=== PATIENT | female | born 1980 | race American Indian/Alaskan Native ===

== ENCOUNTER 2017-06-22 06:30 | Inpatient (IN) | payer MEDICAID ==
[2017-05-28 10:33] VITALS: BMI 34.2
[2017-06-22] MEDS ORDERED: Propofol 10 mg/ml Inj (20 ML) ONE ×2 (07:21→11:02)
[2017-06-22] MEDS ORDERED: Succinylcholine 200 mg/10 ml Inj IV ONE (07:22)
[2017-06-22] MEDS ORDERED: Rocuronium 10 mg/ml (5 ml) ONE (07:22)
[2017-06-22] MEDS ORDERED: ePHEDrine 50 mg/ml Inj ONE (07:22)
[2017-06-22] MEDS ORDERED: Lidocaine 4% (Laryng-O-Jet) Kit MM ONE (07:22)
[2017-06-22] MEDS ORDERED: Midazolam 2 MG/2 ML VIAL ONE (07:22)
[2017-06-22] MEDS ORDERED: SENSORCAINE 0.5% W/EPINEPHRINE 50ML MDV IJ ONE (07:27)
[2017-06-22] MEDS ORDERED: Vasopressin 20 Units/ml Inj ONE (07:27)
[2017-06-22] MEDS ORDERED: Methylene Blue 10 mg/mL(10ml) IV ONE (07:28)
[2017-06-22] MEDS ORDERED: Bupivacaine 0.25%-Epinephrine 1:200,000 (30 ml) Inj ONE (07:34)
[2017-06-22 07:43] LABS: BASO % 0.3 % (0.0-2.0); EOS # 0.3 K/uL (0.0-0.7); EOS % 4.4 % (0.0-4.0); HEMATOCRIT 38.6 % (34.0-47.0); LYMPH # 2.5 K/uL (1.0-4.3); MEAN CELL VOLUME 86.3 fl (81.0-99.0); MEAN CORPUSCULAR HEMOGLOBIN 28.3 pg (27.0-31.0); MEAN CORPUSCULAR HGB CONC 32.8 g/dL (33.0-37.0); MEAN PLATELET VOLUME 7.9 fl (7.2-11.7); MONO # 0.7 K/uL (0.0-0.8); MONO % 10.3 % (0.0-10.0); NEUT # 3.6 K/uL (1.8-7.0); RED CELL DISTRIBUTION WIDTH 13.4 % (11.5-14.5); WHITE BLOOD COUNT 7.2 K/uL (4.8-10.8)
[2017-06-22] MEDS ORDERED: Sevoflurane - Inhalation Anesthetic Liq (250 ml) ONE (07:45)
[2017-06-22 08:03] LABS: BLOOD UREA NITROGEN 9 mg/dl (7-17); CALCIUM 9.2 mg/dL (8.4-10.2); CARBON DIOXIDE 26 mmol/L (22-30); CHLORIDE 104 mmol/L (98-107); GFR AFRICAN-AMERICAN > 60; GLUCOSE,RANDOM 99 mg/dL (65-105); POTASSIUM 3.8 MMOL/L (3.6-5.0); SODIUM 141 mmol/l (132-148)
[2017-06-22] MEDS ORDERED: Lactated Ringer's 1,000 ML IV ONE ×3 (08:15→11:45)
[2017-06-22] MEDS: Lactated Ringer's 1,000 ML IV ONE ×3 (08:15→15:40)
[2017-06-22] MEDS ORDERED: Bupivacaine 0.25%-Epinephrine 1:200,000 (30 ml) Inj IJ ONE ×2 (08:35)
[2017-06-22] MEDS ORDERED: Vasopressin 20 Units/ml Inj IV ONE (09:22)
[2017-06-22] MEDS ORDERED: HEMOSTATIC MATRIX 10 ML DIS.NEEDLE TOP ONE ×2 (10:25)
[2017-06-22] MEDS ORDERED: Ferric Subsulfate Sol(60 mL) ONE (12:25)
[2017-06-22] MEDS ORDERED: Ferric Subsulfate Sol(60 mL) TP ONE (12:26)
[2017-06-22] MEDS ORDERED: Lactated Ringer's 1,000 ML IV SCH (12:56)
[2017-06-22] MEDS ORDERED: Oxycodone/Acetaminophen 5/325 mg Tab PO PRN (13:04)
--- NOTE | 2017-06-22 13:08 | PCM.SURG1 ---
<Connor Guidry - Last Filed: 06/22/17 13:06> Surgeon's Initial Post Op Note - Surgeon's Notes Surgeon: Dr. Perez Balance Weigher: Connor Guidry PGY2, Rober NI Type of Anesthesia: General Endo Pre-Operative Diagnosis: Pelvic pain, uterine fibroids. Operative Findings: Uterine fibroids, extensive adhesions, R ovrian cyst Post-Operative Diagnosis: Same Operation Performed: Robotic extensive lysis of adhesion, R ovarian cystectomy, R salphingectomy. Specimen/Specimens Removed: Adhesions, R ovarian cyst, R uterine tube. Estimated Blood Loss: EBL {In ML}: 100 Blood Products Given: N/A Drains Used: No Drains Post-Op Condition: Fair Date of Surgery/Procedure: 06/22/17 Time of Surgery/Procedure: 13:08 <Monroe Perez - Last Filed: 07/05/17 17:34> Surgeon's Initial Post Op Note - Surgeon's Notes Surgeon: Dr. Chris Childress Type of Anesthesia: General Endo, Local Pre-Operative Diagnosis: Abnormal uterine bleeding, Fibroid uterus, Chrnoic pelvic pain Operative Findings: Fibroid uterus, Extensive peritoneal adhessions, bowel adhessions, extensive endometriosis. Multiple myomas in lower posterior uterine segmenet, right and left posterior uterine wall. Extensive bowel adhesions involving multiple bowel loops / small bowel and the posterior culdesac, and pelvic side wall. Both adnexa tightly adherent to bowel and uterus and posterior culdesac. right ovarian cyst, right falopian tube severely distorted and adherent to uterus and bowl loops. Ureters explored and showing uncompromised as per exploration and finally cystoscopy at the end of the procedure. cystoscopy showing normal bladder anatomy. myomectomy completed with 3 myomas removed via the assitant port. defects repaired with 2- 0 v lock sutures. exteremely difficult surgical case due to distorted anatomy and severe adhesions. tubes are severely distorted and adherent to pelvic viscera. Post-Operative Diagnosis: Abnormal uterine bleeding,. Fibroid uterus,. Chrnoic pelvic pain. Ovarian cysts. Pelvic adhesive disease. severly distorted pelvic anatomy due to adhessions, fibroids and ovarian cysts. Operation Performed: 1. Robotic assited myomectomy, right ovarian cystectomy, right salpingectomy partial. 2. Extensive lysis of adhesions / enterolysis. 3. Cystoscopy Specimen/Specimens Removed: Myomas, right ovarian cyst, right falopian tube severely distorted segmenet Estimated Blood Loss: EBL {In ML}: 100 Drains Used: No Drains Post-Op Condition: Good Date of Surgery/Procedure: 06/22/17 Time of Surgery/Procedure: 13:10
[2017-06-22] MEDS: HYDROmorphone 0.5 mg/0.5 ml ISec IVP PRN ×2 (13:50→14:15)
[2017-06-22] MEDS: ceFAZolin 1 GM in Sodium Chloride 0.9% 100 ML IVPB SCH (17:02)
[2017-06-22 18:42] LABS: HEMATOCRIT 41.7 % (34.0-47.0)
[2017-06-22 21:34] LABS: HEMATOCRIT 38.2 % (34.0-47.0); MEAN CELL VOLUME 85.4 fl (81.0-99.0); MEAN CORPUSCULAR HEMOGLOBIN 27.3 pg (27.0-31.0); RED CELL DISTRIBUTION WIDTH 13.5 % (11.5-14.5); WHITE BLOOD COUNT 13.6 K/uL (4.8-10.8)
[2017-06-23] MEDS: ceFAZolin 1 GM in Sodium Chloride 0.9% 100 ML IVPB SCH ×2 (01:57→09:39)
[2017-06-23 04:13] VITALS: BP 132/86; PULSE 96; RESP 18; TEMP 99.1; O2SAT 96
--- NOTE | 2017-06-23 08:28 | CP.PCM.DIS ---
Provider - Provider Date of Admission: 06/22/17 12:58 Attending physician: Monroe Perez MD Primary care physician: Schuyler Chang Time Spent in preparation of Discharge (in minutes): 45 Hospital Course - Lab Results Lab Results: Most Recent Lab Values WBC 13.6 K/uL (4.8-10.8) H D 06/22/17 21:20 RBC 4.47 Mil/uL (3.80-5.20) 06/22/17 21:20 Hgb 12.2 g/dL (12.0-16.0) 06/22/17 21:20 Hct 38.2 % (34.0-47.0) 06/22/17 21:20 MCV 85.4 fl (81.0-99.0) 06/22/17 21:20 MCH 27.3 pg (27.0-31.0) 06/22/17 21:20 MCHC 32.0 g/dL (33.0-37.0) L 06/22/17 21:20 RDW 13.5 % (11.5-14.5) 06/22/17 21:20 Plt Count 318 K/uL (130-400) 06/22/17 21:20 MPV 7.9 fl (7.2-11.7) 06/22/17 07:34 Neut % (Auto) 50.0 % (50.0-75.0) 06/22/17 07:34 Lymph % (Auto) 35.0 % (20.0-40.0) 06/22/17 07:34 [place] % (Auto) 10.3 % (0.0-10.0) H 06/22/17 07:34 Eos % (Auto) 4.4 % (0.0-4.0) H 06/22/17 07:34 Baso % (Auto) 0.3 % (0.0-2.0) 06/22/17 07:34 Neut # 3.6 K/uL (1.8-7.0) 06/22/17 07:34 Lymph # 2.5 K/uL (1.0-4.3) 06/22/17 07:34 [place] # 0.7 K/uL (0.0-0.8) 06/22/17 07:34 Eos # 0.3 K/uL (0.0-0.7) 06/22/17 07:34 Baso # 0.0 K/uL (0.0-0.2) 06/22/17 07:34 Sodium 141 mmol/l (132-148) 06/22/17 07:34 Potassium 3.8 MMOL/L (3.6-5.0) 06/22/17 07:34 Chloride 104 mmol/L (98-107) 06/22/17 07:34 Carbon Dioxide 26 mmol/L (22-30) 06/22/17 07:34 Anion Gap 14 (10-20) 06/22/17 07:34 BUN 9 mg/dl (7-17) 06/22/17 07:34 Creatinine 0.7 mg/dL (0.7-1.2) 06/22/17 07:34 Est GFR ( Amer) > 60 06/22/17 07:34 Est GFR (Non-Af Amer) > 60 06/22/17 07:34 POC Glucose (mg/dL) 141 mg/dL (65-110) H 06/22/17 13:03 Random Glucose 99 mg/dL (65-105) 06/22/17 07:34 Calcium 9.2 mg/dL (8.4-10.2) 06/22/17 07:34 Blood Type B POSITIVE 06/22/17 07:34 Blood Type Confirm B POSITIVE 06/22/17 09:50 Antibody Screen Negative 06/22/17 07:34 BBK History Checked No verified bt 06/22/17 07:34 - Hospital Course Hospital Course: Pt came in [facility] for robotic myomectomy for pelvic pain and vaginal bleeding. Pt tolerated the procedure well. The following day pt had good urine ouput. TOleralted diet. Pain controlled. And voided freely. Pt is instructed to: follow up with Dr. Perez in 1-2 weeks. Take percocet for pain. Take colcae over the counter with med for constipation. Ok to take shower tomorrow. Leave glue on. No heavy lifting for 1 month. No sexual activity for 1month. Discharge Exam - Head Exam Head Exam: ATRAUMATIC, NORMAL INSPECTION, NORMOCEPHALIC - Eye Exam Eye Exam: EOMI, Normal appearance, PERRL Pupil Exam: NORMAL ACCOMODATION, PERRL - Respiratory Exam Respiratory Exam: Clear to PA & Lateral, NORMAL BREATHING PATTERN - Cardiovascular Exam Cardiovascular Exam: REGULAR RHYTHM, +S1, +S2 - GI/Abdominal Exam GI & Abdominal Exam: Normal Bowel Sounds, Soft. absent: Distended, Firm, Guarding Additional comments: Incision C/D/I - Extremities Exam Extremities exam: full ROM, normal inspection - Back Exam Back exam: NORMAL INSPECTION - Neurological Exam Neurological exam: Alert, CN II-XII Intact, Normal Gait, Oriented x3, Reflexes Normal - Psychiatric Exam Psychiatric exam: Normal Affect, Normal Mood - Skin Skin Exam: Dry, Intact, Normal Color, Warm Discharge Plan - Follow Up Plan Condition: GOOD Disposition: HOME/ ROUTINE Instructions: Myomectomy (DC) Additional Instructions: follow up with Dr. Perez in 1-2 weeks. Take percocet for pain. Take colace over the counter with med for constipation. Ok to take shower tomorrow. Leave glue on. No heavy lifting for 1 month. No sexual activity for 1month. Referrals: [id number] [Other]
--- NOTE | 2017-07-05 18:45 | PCM.OP ---
Operative Report - Operative Report Date of Surgery/Procedure: 06/22/17 Time of Surgery/Procedure: 13:00 Surgeon: Monroe Perez MD [employer] Payable Specialist: Jennifer Guidry PGY2, Damaris Richter Anesthesia/Sedation: Gen. with ET tube Pre-Operative Diagnosis: Abnormal uterine bleeding, fibroid uterus, chronic pelvic pain Post-Operative Diagnosis: Abnormal uterine bleeding, fibroid uterus, chronic pelvic pain, endometriosis Indication for Surgery: Recurrent fibroid uterus, debilitating pelvic pain and abnormal uterine bleeding. Operative Findings: Extensive intra-abdominal intrapelvic adhesions and large fibroid uterus right ovarian cyst and distorted right fallopian tube. Procedure/Operation Description: Detailed Operative Report. This is a 37 years old -[place] female with abnormal uterine bleeding, chronic pelvic pain, uterine fibroids. The patient completed an extensive preoperative workup, which included an ultrasound, as well as a Pap smear and chemistry and hematology studies. A decision was finally made to proceed with a robotic assisted myomectomy. A detailed description of this robotic procedure was given to the patient, all risks and benefits of the surgical modality was reviewed, printed material was also given to the patient regarding robotic surgery. The patient fully understood all the risks and benefits and elected to proceed with this proposed procedure. After proper consent was obtained from the patient was taken to the operating room, proper patient identification was completed. She was placed in dorsal lithotomy position; general anesthesia was induced without difficulty. Her legs were placed in adjustable Reza stirrups. Careful attention was placed not to over-flex or over-rotate the lower extremities at the hip or the knee joints. She was prepped and draped appropriately for robotic assisted hysterectomy. Gregg catheter was inserted under sterile conditions. A weighted speculum was placed in the vagina, anterior lip of cervix was grasped with a tenaculum, and a V-care uterine manipulator was inserted through the cervix and secured. A weighted speculum and tenaculum were removed from the patient's vagina and attention was turned to the patient's abdomen. Local anesthetic solutions of 0.25% Marcaine with epinephrine were utilized to infiltrate the skin prior to all abdominal skin incisions. A total of 15 mL of 0.25% Marcaine was utilized throughout the procedure. While tenting the abdominal wall, a Veres needle was inserted through the umbilicus and a pneumoperitoneum was obtained. Approximately 3 cm above the umbilicus in the midline, a 1 cm incision was made with a scalpel and a trocar and sleeve were introduced. A robotic camera was inserted and an initial survey of the patient's abdomen revealed an enlarged fibroid uterus, possible adenomyosis extensive peritoneal adhesions, bowel and omental adhesions as well as extensive endometriosis throughout the pelvic cavity. Multiple myomas were noted in the lower uterine posterior segments, under right and left posterior uterine wall. Extensive bowel adhesions involving multiple bowel loops small and large intestines adherent to the cul-de-sac and pelvic sidewalls. Both adnexa were tightly adherent to the bowel and uterus and posterior cul-de-sac. On the right side extensive adhesions along the right ovarian cyst, right fallopian tube was severely distorted and adherent to the uterus and bowel loops. Ureters were explored and appeared uncompromised. The patient was placed in Trendelenburg position ready for a da Sofi robotic system to be docked. 3 robotic ports were utilized for this procedure. The first robotic port was placed on the patient's right side approximately 5 cm above the right superior iliac crest where a small skin incision approximately 8 mm was made. The second robotic port was in the patient's left side approximately 5 cm superior to the left superior iliac crest. A small incision approximately 1 cm was made 9 cm lateral to the camera port and an home health assistant port was inserted. All robotic ports were approximately 8 mm in size, the home health assistant and the camera ports were 1 cm in size. For the home health assistant and camera ports we utilized the Versa-step trocar system. All trocars were inserted under direct visualization. The placement of the trocars was all accomplished under careful and meticulous placement under direct visualization. Following the placement of all trocars, the da Sofi robotic system was docked in a parallel method without difficulty. The following instruments were utilized for this procedure: the PK sealing device, a monopolar anna and finally a ProGrasp. Prior to the start of the myomectomy, both ureters and their courses were visualized, peristalsing without difficulty. In a meticulous and slow fashion extensive lysis of adhesions as well as lysis of bowel adhesions was completed utilizing sharp and blunt dissection. In a careful fashion both ureters were explored to ascertain that there were not compromised in this extensive lysis of adhesions and anterolysis. On the right side due to the extensive adhesions along the right adnexa, right ovarian cystectomy was completed utilizing sharp and blunt dissection preserving the right ovary. In a similar fashion to right fallopian tube which was severely adherent and distorted over loops of bowel and the uterus was cauterized and excised. The right fallopian tube appeared distended and filled with pus, a pyosalpinx. Continuous lysis of adhesions was accomplished on the left side in a meticulous and careful fashion preserving bowel integrity and omental integrity. Dilute pitrecin solution was used to inject the capsule of all myomas and incision to aid in hemostasis. a total of 40 unites diluted in saline was used to inject with a spinal needle. Multiple incisions over the posterior uterine wall as well over the uterine fundus were made and the myomas were enucleated using sharp and blunt dissection. The incisions were closed in an interrupted fashion using 2-0 and 3-0 sutures V lock with great hemostasis. The serosa was closed in baseball fashion with great hemostasis. All myomas as well as right adnexectomy was removed through the home health assistant port and sent to pathology labeled appropriately. The abdomen was throughout irrigated and cleared of all clots and debris. FloSeal as well as Intercede was applied to the incision sites. Excellent hemostasis was again noted. All robotic and laparoscopic instruments removed under direct visualization. The robotic arms were undocked, and a da Sofi robotic system was wheeled away from the patient's bedside. Both home health assistant and camera ports were closed at the fascial layer utilizing a 2-0 Vicryl suture serial in interrupted fashion. Pneumoperitoneum was reduced and all skin incisions were closed utilizing 4-0 Monocryl in a subcutaneous fashion. Dermabond was applied to all incisions. Due to the complexity of this myomectomy, the distorted pelvic anatomy, a diagnostic cystoscopy was completed. The Gregg catheter was removed; the bladder was distended with approximately 350 cc of normal saline. A 30 cystoscope was introduced and a survey of the bladder anatomy was completed. The base, and the dome of the bladder appeared normal, both ureteral orifices appeared normal and were efluxing urine freely. The urethra appeared normal. A Gregg catheter was reinserted. Patient emerged from general anesthesia without difficulty, and was taken to recovery room in stable condition. Prior to incision the patient received antibiotics, prior to closure sponge lap and needle counts were correct x2. Estimated Blood Loss: 100 Blood Replaced: None Sponge/Instrument Count: Sponge lap and needle count were correct 2 Drains: None Complications: None Specimen: Fibroids, right ovary portion of right fallopian tube Discharge & Condition: Patient was discharged home in stable condition
== END 2017-06-23 14:40 | disposition home or self-care (01) | DRG 359 ==
LOC: H.OPSURG 06:30 → H.MEDSURG1 12:58 → H.OPSURG 16:43
PROVIDERS: ADMIT Obstetrics & Gynecology; ATTEND Obstetrics & Gynecology
PROC: 0UB00ZZ Excision of Right Ovary, Open Approach (ICD-10-PCS; 2017-06-22)
PROC: 0UB50ZZ Excision of Right Fallopian Tube, Open Approach (ICD-10-PCS; 2017-06-22)
PROC: 0DNW0ZZ Release Peritoneum, Open Approach (ICD-10-PCS; 2017-06-22)
PROC: 8E0W0CZ Robotic Assisted Procedure of Trunk Region, Open Approach (ICD-10-PCS; 2017-06-22)
PROC: 0U590ZZ Destruction of Uterus, Open Approach (ICD-10-PCS; principal; 2017-06-22 07:45)
DX: D25.9 Leiomyoma of uterus, unspecified (principal); N73.6 Female pelvic peritoneal adhesions (postinfective); N83.201 Unspecified ovarian cyst, right side; N93.9 Abnormal uterine and vaginal bleeding, unspecified; Z91.011 Allergy to milk products; Z91.013 Allergy to seafood; Z91.018 Allergy to other foods